=== PATIENT | male | born 1985 | race Two or more races ===

== ENCOUNTER 2023-02-15 16:34 | Emergency (ER) | payer OTHER ==
[~2023-02-15] VITALS: Ht 185.4 cm; Wt 83.9 kg
[2023-02-15] MEDS ORDERED: ADDERALL 10 MG10 MG PO (17:34)
== END 2023-02-15 20:15 | disposition home or self-care (01) ==
LOC: ER 16:34
DX: J06.9 Acute upper respiratory infection, unspecified (principal)